=== PATIENT | female | born 1935 | race Caucasian/White ===

== ENCOUNTER 2023-06-09 14:00 | Outpatient (RCR) | payer MEDICARE, SELFPAY ==
--- NOTE | 2023-05-03 09:42 | OPREHPOC ---
Outpatient Therapy Plan of Care This is a Multidisciplinary Plan of Care that may contain components documented by all disciplines (PT, OT, and ST.) PT Problem 1 PT Problem #1 Knowledge Deficit PT Goal 1 Goal 1. Patient will perform independent HEP Target Visit 5 PT Problem 2 PT Problem #2 Pain PT Goal 1 Goal 1. Reduce pain with BM to 4/10 highest Target Visit 5 PT Problem 3 PT Problem #3 Impaired Functional ADLs PT Goal 1 Goal 1. Decrease fecal and urinary incontinence to no more than 1 instance a week 2. Decrease pad use to no more than 1 a day Target Visit 5 PT Problem 4 PT Problem #4 Impaired Strength PT Goal 1 Goal 1. Improve pelvic floor strength to 2/5 to decrease incontinence Target Visit 5
--- NOTE | 2023-05-03 09:42 | PTOPEVAL1 ---
Assessment and note entered by Ana Cristina Miller DPT Evaluation Information Assessment Status Evaluation Subjective Information Pt reports hemorrhoids and they have recently been exacerbated. States she has had pain and bleeding . Highest pain 8/10 and lowest 0/10. Pt also reports urinary and fecal incontinence. Urinates 4 times a day and 2-4 more times at night. Denies pain with urination. Can hold urge to urinate maybe 5 minutes. Uses 4 or 5 pads a day. Urine incontinence happens throughout the day, large volumes when it does happen. BM usually multiple times a day and is often painful due to hemorrhoids. Fecal incontinence most days, reports urgency as well. Pt has been 2 times, vaginal deliveries with stitches. Pt reports no TEST CARRIER history and no b/b history. Uses benefiber, has tried to miralax but causes diarrhea. Drinks mostly water throughout the day, 1-2 cups of coffee in the morning and maybe 1 more at dinner. Does not regularly drink soda or alcohol. Sleeps in usually, eats 2-3 meals a day depending on when she gets up. Does not eat much fruit. Patient goal: get rid of pain from hemorrhoids Returns to MD not scheduled. Reported Pain Level Pain Score 0: Self Report Assessment PT Clinical Summary The patient is presenting to skilled therapy with a history of worsening urinary and fecal incontinence and pain with BM. She presents with significantly decreased pelvic floor muscle strength and inability to contract appropriately, as well as decreased core strength. These impairments are contributing to her daily incontinence. She will highly benefit from therapy to address these impairments and reduce pain and incontinence. Plan of Care Interventions Electrical Stimulation,Hot Pack/Cold Pack,Manual Therapy,Neuro Re-education,Patient/Caregiver Education,Therapeutic Activities,Therapeutic Exercise PT Services Indicated Yes Treatment Frequency and 1 time a week for 4 visits Duration These treatments will address the objective and functional deficits as defined above. The patient will be advanced safely and appropriately in order for th
--- NOTE | 2023-05-30 12:58 | PCPTNOTE ---
Patient called to cancel 05/30 due to not feeling well.
--- NOTE | 2023-06-14 09:50 | PCPTNOTE ---
Patient called to cancel appointment 06/12/23. Stated she would call back at a later date to reschedule.
--- NOTE | 2023-07-19 11:03 | PTOPDC ---
Assessment and note entered by AnaC ristina Miller DPT Evaluation Information Assessment Status Discharge - Pt Not Present Subjective Information - Assessment PT Clinical Summary Patient has not attended therapy since 06/09/23 and has not called back to schedule more visits. She will be discharged this date. Plan of Care PT Services Indicated No
== END 2023-07-19 13:44 | disposition home or self-care (01) ==
LOC: ANHGOSHPT 14:00
PROVIDERS: PCP Family Medicine
DX: R15.9 Full incontinence of feces (principal); M62.89 Other specified disorders of muscle
CPT/HCPCS: 97110; 97112; 97161; 97530

== ENCOUNTER 2024-03-18 12:30 | Outpatient (RCR) | payer MEDICARE, SELFPAY ==
--- NOTE | 2024-02-27 14:43 | OPREHPOC ---
Outpatient Therapy Plan of Care This is a Multidisciplinary Plan of Care that may contain components documented by all disciplines (PT, OT, and ST.) PT Problem 1 PT Problem #1 Knowledge Deficit PT Goal 1 Goal / Goal Update 1. Patient will perform independent HEP Target Visit 5 PT Problem 2 PT Problem #2 Impaired Strength PT Goal 1 Goal / Goal Update 1. Pelvic floor strength to 2/5 to support prolapse symptoms 2. Pelvic floor endurance to 5 seconds to support prolapse symptoms Target Visit 5 PT Problem 3 PT Problem #3 Pain PT Goal 1 Goal / Goal Update Pelvic pain no higher than 5/10 Target Visit 5
--- NOTE | 2024-02-27 14:43 | PTOPEVAL1 ---
Assessment and note entered by Ana Cristina Miller DPT Evaluation Information Assessment Status Evaluation Diagnosis m62.89, n81.6 ICD-10 Condition Codes (PT) R10.2,Stress incontinence N39.3 Subjective Information Pt reports she has a history of rectal prolapse. Will be getting surgery March 26. Surgeon has recommended therapy in the meantime to strengthen . Voids 5-6 times a day, incontinence multiple times a day and always has a pad on. Will get incontinence upon waking up in the morning and it will fill a pad and be running down her leg by the time she gets to the bathroom. Reports sometimes has urgency to void and can hold a very limited amount of time. Denies pain with urination. BM usually every day, will get fecal incontinence almost every day. Takes metamucil and stool softener. Sometimes has pain after a BM, highest 7 /10 and lowest 0/10. No COMMERCIAL ACCOUNT OFFICER or b/b issues. Appendix removed at age 10. Pt has been 2 times, 2 vaginal deliveries with episiotomy with her first. Reports no other history of pelvic pain . Patient goal: strengthen muscles before surgery Returns to MD in a couple weeks. Reported Pain Level Pain Score 0: Self Report Assessment PT Clinical Summary The patient is presenting to skilled therapy with pelvic organ prolapse, urinary incontinence, and pelvic pain. She presents with decreased hip and core strength and significantly decreased pelvic floor strength with inability to contract independently this visit. She will highly benefit from therapy to address strength in order to reduce pain, incontinence, and symptoms of prolapse in preparation for upcoming surgery. Plan of Care Interventions Manual Therapy,Neuro Re-education,Patient/ Caregiver Education,Therapeutic Activities, Therapeutic Exercise PT Services Indicated Yes Treatment Frequency and 1 time a week for 5 visits Duration These treatments will address the objective and functional deficits as defined above. The patient will be advanced safely and appropriately in order for the patient to progress towards his/her prior level of function. Additional exercises will be introduced and as well as a comprehensive home exercise program upon discharge, if needed, ?to ensure carryover of functional gains achieved in the clinic. This treatment plan has been reviewed and agreement upon by the patient.
--- NOTE | 2024-03-06 08:45 | PCPTNOTE ---
Patient called to cancel appointment 03/06/24 due to getting a stress test this date.
--- NOTE | 2024-03-25 13:06 | PCPTNOTE ---
Patient called to cancel appointment 03/25/24 due to needing to prep for surgery tomorrow.
--- NOTE | 2024-04-08 09:26 | PTOPDC ---
Assessment and note entered by Ana Cristina Miller DPT Evaluation Information Assessment Status Discharge - Pt Not Present Diagnosis m62.89, n81.6 ICD-10 Condition Codes (PT) R10.2,Stress incontinence N39.3 Subjective Information - Assessment PT Clinical Summary Patient case to be discharged this date due to surgery. She will need a new script to resume in the future. Plan of Care PT Services Indicated No
== END 2024-04-08 09:47 | disposition home or self-care (01) ==
LOC: ANHGOSHPT 12:30
PROVIDERS: PCP Family Medicine
DX: M99.05 Segmental and somatic dysfunction of pelvic region (principal); N81.6 Rectocele
CPT/HCPCS: 97110; 97112; 97161; 97530